=== PATIENT | female | born 1995 | race African-American/Black ===

== ENCOUNTER 2022-05-07 09:03 | Outpatient (CLI) | payer OTHER, SELFPAY ==
--- NOTE | ~2022-05-07 | US_ITS ---
EXAMINATION: US thyroid DATE: 05/07/2022 09:28 INDICATION: Nontoxic goiter, unspecified. TECHNIQUE: Multiple ultrasound images of the thyroid were obtained. COMPARISON: None. FINDINGS: The right thyroid lobe measures 6.6 x 2.8 x 2.5 cm. The left thyroid lobe measures 6.9 x 2.5 x 2.3 c m. In the left thyroid lobe, there is a 9 mm mixed cystic and solid, hypoechoic, wider than tall nod ule with smooth margin without echogenic foci (TI-RADS TR3). In the right thyroid lobe, there is a 6 mm mixed cystic and solid, hypoechoic, wider than tall nodule with smooth margin without echogenic fo ci (TR3). There are multiple smaller nodules in the thyroid. IMPRESSION: 1. Small thyroid nodules, likely not clinically significant. No follow-up is needed. Reviewed, dictated and finalized at location A. [employer] ASSISTANT MANAGER IMPRESSION: 1. Small thyroid nodules, likely not clinically significant. No follow-up is ne eded.
[2022-05-07 10:21] LABS: Free T4 Free Thyroxine 1.05 ng/mL (0.78-2.19)
[2022-05-07 10:34] LABS: Thyroid Stimulating Hormone 0.794 uIU/mL (0.465-4.680)
[2022-05-11 03:40] LABS: Thyroid Peroxidase Antibodies 3 IU/mL (<9)
== END 2022-05-07 09:04 | disposition home or self-care (01) ==
PROVIDERS: PCP Obstetrics & Gynecology; Visit Provider Obstetrics & Gynecology
DX: E04.2 Nontoxic multinodular goiter (principal)
CPT/HCPCS: 36415; 76536; 84439; 84443; 84481; 86376